=== PATIENT | male | born 2000 | race Asian ===

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

== ENCOUNTER 2022-10-28 16:16 | Outpatient (CLI) | payer OTHER | END 2022-10-28 21:48 | disposition home or self-care (01) | LOC: RAD 16:16 | PROVIDERS: ATTEND Internal Medicine | DX: S80.01XA Contusion of right knee, initial encounter (principal); Y92.89 Other specified places as the place of occurrence of the external cause ==